=== PATIENT | female | born 1975 | race African-American/Black ===

== ENCOUNTER 2016-09-15 09:48 | Emergency (ER) | payer OTHER ==
[2016-09-15 09:55] VITALS: BP 147/94; PULSE 102; TEMP 98; BMI 23.1
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
== END 2016-09-15 11:26 | disposition home or self-care (01) ==
LOC: JERFT 09:48
DX: S60.221A Contusion of right hand, initial encounter (principal); Y35.891A Legal intervention involving other specified means, law enforcement official injured, initial encounter; Y99.0 Civilian activity done for income or pay
CPT/HCPCS: 73130-TC-RT; 99281-25

== ENCOUNTER 2016-12-10 06:41 | Day surgery (SDC) | payer BC ==
[2016-12-09 15:38] VITALS: BMI 24.0
[2016-12-10 07:07] LABS: BASOPHIL 0.5 % (0-2.0); EOSINOPHIL 1.8 % (0-4.5); MCH 26.4 pg (25.7-33.7); MCHC 32.9 g/dl (32.0-36.0); MEAN CELL VOLUME 80.1 fl (80-96); NEUTROPHILS 55.1 % (42.8-82.8); PLATELET COUNT 204 K/MM3 (134-434); WHITE BLOOD COUNT 6.5 K/mm3 (4.0-10.0)
[2016-12-10 07:33] LABS: ALBUMIN 3.4 g/dl (3.4-5.0); ALK PHOS 63 U/L (45-117); ANION GAP 6 (8-16); BILIRUBIN,TOTAL 0.2 mg/dL (0.2-1.0); CALCIUM 8.8 mg/dL (8.5-10.1); CO2 25 mmol/L (21-32); CREATININE 0.7 mg/dL (0.55-1.02); GLUCOSE,RANDOM 94 mg/dL (74-106); SGOT/AST 15 U/L (15-37); SGPT/ALT 17 U/L (12-78); TOT PROT 6.7 g/dl (6.4-8.2)
[2016-12-10] MEDS ORDERED: MIDAZOLAM HCL 2 MG/2 ML SINGLE DOSE VIAL ONE ×2 (09:38)
[2016-12-10] MEDS ORDERED: PROPOFOL 20 ML ONE (09:38)
[2016-12-10] MEDS ORDERED: oxyCODONE HCL 5 MG TABLET PO PRN (10:03)
[2016-12-10] MEDS ORDERED: ONDANSETRON 4 MG/2 ML VIAL IVPUSH PRN (10:03)
[2016-12-10] MEDS ORDERED: PROMETHAZINE HCL 25 MG/1 ML VIAL IVPUSH PRN (10:03)
[2016-12-10 10:38] VITALS: TEMP 98
[2016-12-10] MEDS ORDERED: IBUPROFEN 400 MG TABLET (FP) PO PRN (10:58)
[2016-12-10] MEDS ORDERED: ACETAMINOPHEN 325 MG TABLET (FP) PO PRN (10:58)
--- NOTE | 2016-12-10 10:58 | HP ---
Satellite [facility] - Chief Complaint History Source: Patient Limitations to Obtaining History: No Limitations - Past Medical History Allergies/Adverse Reactions: Allergies Allergy/AdvReac Type Severity Reaction Status Date / Time No Known Allergies Allergy Verified 12/09/16 15:33 ...LMP: 10/06/16 ...: Yes (missed ) - Current Medications Current Medications: Home Medications Medication Instructions Recorded Vits #93/Iron Fum/FA 1 each PO HS 12/09/16 [ Formula Tablet] Satellite Physical Exam - Physical Examination Vital Signs: Vital Signs Period Temp Pulse Resp BP Sys/Manjarrez Pulse Ox Last 24 Hr 98.0 F-98.6 F 64-80 15-20 102-136/64-76 95-99 General Appearance: Well Nourished, Well Developed Lung: Clear to auscultation Heart: Regular rate & rhythm Breasts: Soft, Non-Tender Abdomen: Soft, No tenderness, No hepatosplenomegaly Pelvic Exam: Within normal limits External Genitalia, Within normal limits Vagina, Within normal limits Cervix, Within normal limits [place], Other Uterus (8 weks) Neurological: Intact, Alert, Oriented Satellite Impression/Plan - Impression/Plan Impression: missed Date to be Performed: 12/10/16
--- NOTE | 2016-12-10 11:07 | OP ---
Operative Note - Note: Operative Date: 12/10/16 Pre-Operative Diagnosis: Missed Operation: Suction DC Findings: poc obtained Post-Operative Diagnosis: Same as Pre-op Surgeon: Gabriela Atkins Anesthesiologist/JACKER: Kenneth Valentin Anesthesia: MAC Operative Report Dictated: Yes
[2016-12-10 12:52] VITALS: BP 124/75; PULSE 64
--- NOTE | 2016-12-13 12:37 | PATH ---
Surgical Pathology Report Patient Name: JOSE ANTONIO LARSEN Med. Rec. #: [id number] /Age/Gender: 1975 (Age: 41) / F Account: [id number] Location: [facility] SURGICAL Taken: 12/10/2016 Received: 12/10/2016 Reported: 12/13/2016 Physicians: Gabriela Atkins M.D. Specimen(s) Received PRODUCTS OF CONCEPTION Clinical History Missed Final Diagnosis UTERINE CONTENTS, EVACUATION: CHORIONIC VILLI CONSISTENT WITH PRODUCTS OF CONCEPTION. Electronically Signed Keenan Cedeño M.D. Gross Description Received fresh labeled "contents of conception," is a 9.0 x 6.5 x 0.8 cm aggregate of rasmussen red soft tissue fragments. Villous tissue is identified. No definite somatic tissue is identified. A printing sales representative portion is placed in RPMI solution and sent for chromosomal analysis. An additional printing sales representative portion is submitted in one cassette. 12/10/2016 saudi12/10/2016
== END 2016-12-10 12:53 | disposition home or self-care (01) ==
LOC: JASU-SURG 06:41
PROVIDERS: ATTEND Obstetrics & Gynecology
PROC: 10D17ZZ Extraction of Products of Conception, Retained, Via Natural or Artificial Opening (ICD-10-PCS; principal; 2016-12-10 08:00)
DX: O02.1 Missed abortion (principal)
CPT/HCPCS: 36415; 80053; 85025; 86850; 86900; 86901; 88305-TC; 94760

== ENCOUNTER 2017-07-14 09:50 | Day surgery (SDC) | payer BC ==
--- NOTE | 2017-07-14 08:07 | HP ---
History & Physical Update - History History: No Change - Physical Physical: No Change - Assessment Assessment: No Change - Plan Plan: No Change (NO chage in HP from 07/12/17)
[~2017-07-14 09:50] MED LIST: ACETAMINOPHEN 325 MG TABLET (FP) PO PRN; IBUPROFEN 400 MG TABLET (FP) PO PRN
[2017-07-14 10:20] LABS: BASO % 0.8 % (0-2.0); EOS % 1.2 % (0-4.5); HEMATOCRIT 38.7 % (32.4-45.2); HEMOGLOBIN 12.7 GM/dL (10.7-15.3); LYMPH % 25.2 % (8-40); MCH 26.8 pg (25.7-33.7); MCHC 32.9 g/dl (32.0-36.0); MEAN CELL VOLUME 81.6 fl (80-96); MEAN PLT VOLUME 9.1 fl (7.5-11.1); MONO % 10.1 % (3.8-10.2); NEUT % 62.7 % (42.8-82.8); PLATELET COUNT 220 K/MM3 (134-434); RBC 4.74 M/mm3 (3.60-5.2); RDW 14.5 % (11.6-15.6); WHITE BLOOD COUNT 7.9 K/mm3 (4.0-10.0)
[2017-07-14] MEDS ORDERED: MIDAZOLAM HCL 2 MG/2 ML SINGLE DOSE VIAL ONE (10:31)
[2017-07-14] MEDS ORDERED: PROPOFOL 20 ML ONE (10:31)
[2017-07-14 10:36] VITALS: BMI 24.0
[2017-07-14 10:45] LABS: ALBUMIN 3.5 g/dl (3.4-5.0); ALK PHOS 59 U/L (45-117); ANION GAP 5 (8-16); BILIRUBIN,TOTAL 0.2 mg/dL (0.2-1.0); BLOOD UREA NITROGEN 7 mg/dL (7-18); CALCIUM 8.7 mg/dL (8.5-10.1); CHLORIDE 110 mmol/L (98-107); CO2 26 mmol/L (21-32); CREATININE 0.7 mg/dL (0.55-1.02); GLUCOSE,RANDOM 88 mg/dL (74-106); POTASSIUM 4.5 mmol/L (3.5-5.1); SGOT/AST 16 U/L (15-37); SGPT/ALT 20 U/L (12-78); SODIUM 141 mmol/L (136-145)
--- NOTE | 2017-07-14 12:15 | OP ---
DATE OF OPERATION: 07/14/2017 PREOPERATIVE DIAGNOSIS: Missed . OPERATION: Suction dilatation and curettage. POSTOPERATIVE DIAGNOSIS: Missed . SURGEON: Gabriela Atkins MD ANESTHESIA: General. PROCEDURE: Patient was taken to the operating room, placed in dorsal lithotomy position, prepped and draped in the usual sterile fashion. A time-out was performed in accordance with hospital regulations. A speculum was placed in the vagina. Anterior lip of the cervix was grasped with a single-tooth tenaculum. Cervix was then dilated to accommodate the suction curettage. Suction curettage followed by sharp curettage was done. All contents was emptied and submitted to Pathology for chromosomal analysis. Estimated blood loss was 30 mL. All instruments were then removed. Patient tolerated the procedure well. Pack count was correct. GABRIELA ATKINS M.D. TAYLOR/[id number] MTDD
[2017-07-14] MEDS ORDERED: IBUPROFEN 400 MG TABLET (FP) PO ONE ×2 (12:43→12:45)
[2017-07-14 12:50] VITALS: TEMP 98.4
--- NOTE | 2017-07-14 12:59 | OP ---
Operative Note - Note: Operative Date: 07/14/17 Pre-Operative Diagnosis: Missed Operation: Suction DC Findings: uterus 8 cm Post-Operative Diagnosis: Same as Pre-op Surgeon: Gabriela Atkins Anesthesia: General Estimated Blood Loss (mls): 30 Operative Report Dictated: Yes
[2017-07-14 13:39] VITALS: BP 117/69; PULSE 75
--- NOTE | 2017-07-18 09:03 | PATH ---
Surgical Pathology Report Patient Name: JOSE ANTONIO LARSEN Med. Rec. #: [id number] /Age/Gender: 1975 (Age: 42) / F Account: [id number] Location: [facility] SURGICAL Taken: 07/14/2017 Received: 07/14/2017 Reported: 07/18/2017 Physicians: Gabriela Atkins M.D. Specimen(s) Received PRODUCTS OF CONCEPTION/CONTENTS FOR GENETIC TESTING Clinical History Missed Final Diagnosis PRODUCTS OF CONCEPTION, SUCTION DILATATION AND CURETTAGE: IMMATURE CHORIONIC VILLI AND DECIDUA CONSISTENT WITH PRODUCTS OF CONCEPTION. CHROMOSOMAL ANALYSIS IS PENDING. RESULTS WILL BE REPORTED AN ADDENDUM. Electronically Signed Naya Lau M.D. Gross Description Received fresh, labeled "products of conception," is a 7 x 8 x 1 cm. aggregate of rasmussen-red hemorrhagic soft tissue fragments. Villous tissue is identified. No somatic tissue is identified. A canvas products sales representative portion is submitted in 2 cassettes. Ichthyology Teacher portion is submitted for chromosomal analysis. JANENE/07/14/2017 krishna/07/14/2017
== END 2017-07-14 13:47 | disposition home or self-care (01) ==
LOC: JASU-SURG 09:50
PROVIDERS: ATTEND Obstetrics & Gynecology
PROC: 10D17ZZ Extraction of Products of Conception, Retained, Via Natural or Artificial Opening (ICD-10-PCS; principal; 2017-07-14 11:00)
DX: O02.1 Missed abortion (principal)
CPT/HCPCS: 36415; 80053; 85025; 86850; 86900; 86901; 88305-TC